=== PATIENT | female | born 1975 | race Caucasian/White ===

== ENCOUNTER 2021-05-30 02:45 | Observation (INO) ==
[2021-05-30] MEDS ORDERED: Droperidol 5 MG/2 ML 2 ML VIAL IV ONE (03:19)
[2021-05-30 03:41] LABS: ABS Basophils 0.1 10^3/ul (0-0.2); ABS Monocytes 0.4 10^3/ul (0-0.8); ABS Neutrophils 8.3 10^3/ul (1.5-7.7); Eosinophil % 0.1 %; Hematocrit 40 % (35-47); Hemoglobin 13.6 g/dL (12.0-16.0); Lymphocyte % 10.4 %; Mean Corpuscular HGB Conc 34 g/dL (31-36); Mean Corpuscular Hemoglobin 30 pg (27-31); Mean Corpuscular Volume 89 fL (80-97); Mean Platelet Volume 8.7 fL (7.4-10.4); Platelet Count 300 10^3/uL (150-450); Red Blood Count 4.51 10^6 /uL (3.70-4.87); Red Cell Distribution Width 14 % (10-15); White Blood Count 9.7 10^3/uL (3.5-10.8)
[2021-05-30 03:45] LABS: INR 1.04 (0.86-1.15)
[2021-05-30 03:56] LABS: Albumin 4.3 g/dL (3.2-5.2); Albumin/Globulin Ratio 1.5 (1-3); Calcium 9.8 mg/dL (8.6-10.3); Globulin 2.9 g/dL (2-4); Potassium 3.9 mmol/L (3.5-5.0); Total Bilirubin 0.3 mg/dL (0.2-1.0); Total Protein 7.2 g/dL (6.4-8.9); eGFR CKD-EPI 88.2 (>60)
[2021-05-30 05:01] LABS: Urine Appearance Cloudy; Urine Bilirubin Negative (Negative); Urine Blood Negative (Negative); Urine Color Yellow; Urine Glucose 2+(150 mg/dL) (Negative); Urine Ketones 1+ (Negative); Urine Nitrite Negative (Negative); Urine Protein Negative (Negative); Urine Specific Gravity 1.013 (1.002-1.030); Urine Urobilinogen Negative (Negative)
[2021-05-30] MEDS ORDERED: Iohexol 300 (CONTRAST) 10 ML SDV IV ONE (06:29)
[2021-05-30] MEDS ORDERED: Famotidine IV 10 MG/ML 2 ml VIAL (20 mg) IV SLOW PU ONE (07:56)
[2021-05-30] MEDS ORDERED: Al Hydrox/Mg Hydrox/Simet LIQ 30 ML UDC PO ONE (07:56)
[2021-05-30] MEDS ORDERED: Ondansetron 4 mg VIAL 2 MG/ML 2 ml VIAL IV ONE (09:44)
[2021-05-30] MEDS ORDERED: Morphine 2 MG/ML SYRINGE IV ONE (09:44)
[2021-05-30] MEDS ORDERED: Morphine 4 MG/ML VIAL (1 ml) ONE (09:52)
[2021-05-30] MEDS ORDERED: Ondansetron 4 mg VIAL 2 MG/ML 2 ml VIAL IV PRN (10:21)
[2021-05-30] MEDS ORDERED: HYDROmorphone 0.5 MG/0.5 ML SYRINGE IV SLOW PU PRN (10:21)
[2021-05-30] MEDS ORDERED: HYDROmorphone 1 MG/1 ML SYRINGE IV SLOW PU PRN (10:21)
[2021-05-30] MEDS: Acetaminophen IV 1 GM/100ML 100 ML IV SCH ×3 (11:39→22:34)
[2021-05-30] MEDS ORDERED: Piperacillin/Tazobac ADVAN 3.375 GM in NS 0.9% 100 ml BAG 100 ML IV SCH (12:00)
[2021-05-30] MEDS: Piperacillin/Tazobac ADVAN 3.375 GM in NS 0.9% 100 ml BAG 100 ML IV SCH ×2 (14:10→22:57)
[2021-05-30] MEDS ORDERED: Lactated Ringers 1000 ml BAG 1,000 ML IV ONE (15:00)
[2021-05-30] MEDS: NS 0.9% 1000 ml BAG 1,000 ML IV SCH (16:06)
[2021-05-30] MEDS ORDERED: NALTREXONE 4.5 MG PO SCH (21:00)
[2021-05-30] MEDS: NALTREXONE 4.5 MG PO SCH (21:17)
[2021-05-31] MEDS: NS 0.9% 1000 ml BAG 1,000 ML IV SCH (03:16)
[2021-05-31] MEDS: Acetaminophen IV 1 GM/100ML 100 ML IV SCH ×2 (05:00→10:37)
[2021-05-31 05:47] LABS: ABS Basophils 0.1 10^3/ul (0-0.2); ABS Eosinophils 0.1 10^3/ul (0-0.6); ABS Lymphocytes 1.1 10^3/ul (1.0-4.8); ABS Monocytes 0.7 10^3/ul (0-0.8); ABS Neutrophils 8.4 10^3/ul (1.5-7.7); Eosinophil % 0.5 %; Hematocrit 39 % (35-47); Hemoglobin 12.8 g/dL (12.0-16.0); Lymphocyte % 10.4 %; Mean Corpuscular HGB Conc 33 g/dL (31-36); Mean Corpuscular Hemoglobin 30 pg (27-31); Mean Corpuscular Volume 90 fL (80-97); Mean Platelet Volume 8.2 fL (7.4-10.4); Platelet Count 250 10^3/uL (150-450); Red Blood Count 4.27 10^6 /uL (3.70-4.87); Red Cell Distribution Width 14 % (10-15); White Blood Count 10.3 10^3/uL (3.5-10.8)
[2021-05-31 06:01] LABS: Calcium 8.7 mg/dL (8.6-10.3); eGFR CKD-EPI 103.1 (>60)
[2021-05-31] MEDS: Piperacillin/Tazobac ADVAN 3.375 GM in NS 0.9% 100 ml BAG 100 ML IV SCH (06:29)
[2021-05-31 08:18] VITALS: BP 125/72
[2021-05-31] MEDS: NALTREXONE 4.5 MG PO SCH (09:10)
== END 2021-05-31 11:01 | disposition home or self-care (01) ==
LOC: SSU 02:45 → ED 02:45
PROVIDERS: ADMIT Physician Assistant Surgical; ATTEND Surgery Surgical Critical Care

== ENCOUNTER 2021-06-02 10:47 | Observation (INO) ==
[2021-06-02] MEDS ORDERED: Lactated Ringers 1000 ml BAG 1,000 ML IV ONE (12:41)
[2021-06-02] MEDS ORDERED: Morphine 4 MG/ML VIAL (1 ml) IV ONE (12:41)
[2021-06-02] MEDS ORDERED: Ondansetron 4 mg VIAL 2 MG/ML 2 ml VIAL IV ONE (12:41)
[2021-06-02 13:46] LABS: ABS Eosinophils 0.1 10^3/ul (0-0.6); ABS Lymphocytes 1.2 10^3/ul (1.0-4.8); ABS Monocytes 1.1 10^3/ul (0-0.8); ABS Neutrophils 14.6 10^3/ul (1.5-7.7); Eosinophil % 0.8 %; Hematocrit 39 % (35-47); Hemoglobin 12.8 g/dL (12.0-16.0); Lymphocyte % 6.9 %; Mean Corpuscular HGB Conc 33 g/dL (31-36); Mean Corpuscular Hemoglobin 30 pg (27-31); Mean Corpuscular Volume 91 fL (80-97); Mean Platelet Volume 8.6 fL (7.4-10.4); Platelet Count 284 10^3/uL (150-450); Red Blood Count 4.25 10^6 /uL (3.70-4.87); Red Cell Distribution Width 14 % (10-15); White Blood Count 17.1 10^3/uL (3.5-10.8)
[2021-06-02] MEDS ORDERED: Buffered Lidocaine 1% SYRIN 1 ml INTRADERM ONE (13:55)
[2021-06-02] MEDS ORDERED: Famotidine IV 10 MG/ML 2 ml VIAL (20 mg) IV ONE (13:55)
[2021-06-02 13:56] LABS: Albumin 3.9 g/dL (3.2-5.2); Calcium 9.9 mg/dL (8.6-10.3); Potassium 4.1 mmol/L (3.5-5.0); Total Bilirubin 0.9 mg/dL (0.2-1.0)
[2021-06-02] MEDS ORDERED: Bupivacaine 0.25% EPI 200,000 30 ML SDV ONE (13:58)
[2021-06-02] MEDS ORDERED: Lactated Ringers 1000 ml BAG 1,000 ML IV SCH (14:00)
[2021-06-02 14:02] LABS: Albumin/Globulin Ratio 1.1 (1-3); C Reactive Protein 342.3 mg/L (<8.01); Globulin 3.6 g/dL (2-4); Total Protein 7.5 g/dL (6.4-8.9); eGFR CKD-EPI 101.4 (>60)
[2021-06-02] MEDS ORDERED: Piperacillin/Tazobac 3.375 GM BAG ONE (14:18)
[2021-06-02] MEDS ORDERED: Famotidine IV 10 MG/ML 2 ml VIAL (20 mg) ONE (14:39)
[2021-06-02] MEDS ORDERED: Propofol 10 MG/ML 20 ML BTL ONE (15:03)
[2021-06-02] MEDS ORDERED: Lidocaine 2% PF 5 ML VIAL ONE (15:03)
[2021-06-02] MEDS ORDERED: Dexamethasone IV 4 MG/ML VIAL 1 ml VIAL ONE (15:03)
[2021-06-02] MEDS ORDERED: Rocuronium 50 mg VIAL 10 mg/ml 5 ml VIAL (50 mg) ONE (15:04)
[2021-06-02] MEDS ORDERED: Midazolam 2 mg/2 ml VIAL 1 mg/ml 2 ml VIAL (2 mg) ONE (15:04)
[2021-06-02] MEDS ORDERED: fentaNYL 100 mcg/2 ml 50 MCG/ML VIAL ONE ×2 (15:04→16:07)
[2021-06-02] MEDS ORDERED: fentaNYL 100 mcg/2 ml 50 MCG/ML VIAL IV PRN (16:55)
[2021-06-02] MEDS ORDERED: DiMENhydriNATE IV 50 mg/ml 1 ml VIAL IV PUSH PRN (16:55)
[2021-06-02] MEDS ORDERED: Naloxone 0.4 mg VIAL 0.4 mg/ml 1 ml VIAL IV PRN (16:55)
[2021-06-02] MEDS ORDERED: Acetaminophen IV 1 GM/100ML 100 ML IV ONE ×2 (16:55→17:22)
[2021-06-02] MEDS ORDERED: HYDROmorphone 1 MG/1 ML SYRINGE IV PRN (16:55)
[2021-06-02] MEDS ORDERED: DiMENhydriNATE IV 50 mg/ml 1 ml VIAL ONE (17:16)
[2021-06-02] MEDS ORDERED: HYDROmorphone 1 MG/1 ML SYRINGE IV SLOW PU PRN (17:26)
[2021-06-02] MEDS ORDERED: HYDROmorphone 0.5 MG/0.5 ML SYRINGE IV SLOW PU PRN (17:26)
[2021-06-02] MEDS ORDERED: Acetaminophen IV 1 GM/100ML 100 ML IV PRN (17:26)
[2021-06-02] MEDS ORDERED: Ondansetron 4 mg VIAL 2 MG/ML 2 ml VIAL IV PRN (17:31)
[2021-06-02] MEDS ORDERED: Morphine ORAL.SOLN 10 mg 2 mg/ml UDC 5 ml (10 mg) PO PRN (18:09)
[2021-06-02] MEDS: D5W 1/2 NS KCl 20 meq 1000 ml 1,000 ML IV SCH (18:27)
[2021-06-02] MEDS: Piperacillin/Tazobac ADVAN 3.375 GM in NS 0.9% 100 ml BAG 100 ML IV SCH (21:01)
[2021-06-02] MEDS: NALTREXONE 4.5 MG PO SCH (21:03)
[2021-06-03] MEDS: Piperacillin/Tazobac ADVAN 3.375 GM in NS 0.9% 100 ml BAG 100 ML IV SCH ×3 (03:47→19:56)
[2021-06-03] MEDS: D5W 1/2 NS KCl 20 meq 1000 ml 1,000 ML IV SCH (03:47)
[2021-06-03] MEDS: Heparin 5000 UNITS/ML 1 mL VIAL SUBCUT SCH ×3 (05:51→22:09)
[2021-06-03] MEDS: NALTREXONE 4.5 MG PO SCH ×2 (08:06→22:16)
[2021-06-03] MEDS ORDERED: Magnesium Hydroxide LIQ 30 ML UDC PO PRN (18:32)
[2021-06-03] MEDS ORDERED: Senna TAB 8.6 mg TAB PO PRN (18:32)
[2021-06-04] MEDS ORDERED: diPHENhydraMINE 25 mg TAB PO ONE (02:00)
[2021-06-04] MEDS: Piperacillin/Tazobac ADVAN 3.375 GM in NS 0.9% 100 ml BAG 100 ML IV SCH (04:11)
[2021-06-04] MEDS: Heparin 5000 UNITS/ML 1 mL VIAL SUBCUT SCH (05:46)
[2021-06-04 07:59] VITALS: BP 124/87
[2021-06-04] MEDS: NALTREXONE 4.5 MG PO SCH (09:04)
== END 2021-06-04 11:55 | disposition home or self-care (01) ==
LOC: ED 10:47 → EDHOLD 14:41 → INTOOBSV 14:41 → SSU 18:02
PROVIDERS: ADMIT Physician Assistant Surgical; ATTEND Surgery